=== PATIENT | female | born 1950 | race Caucasian/White ===

== ENCOUNTER 2024-11-10 02:22 | Emergency (ER) | payer OTHER ==
[2024-11-10 02:30] VITALS: BP 127/75; TEMP 97.5; BMI 32.9
[2024-11-10] MEDS ORDERED: ALBUTEROL SO4 2.5/IPRATROPIUM 0.5 INH SOL 3 ML VIAL.NEB. NEB ONE (02:32)
[2024-11-10] MEDS: guaiFENesin 600 MG TABLET.ER (FP) PO ONE (03:48)
[2024-11-10 03:54] VITALS: PULSE 100; RESP 20
[2024-11-10] MEDS ORDERED: predniSONE 20 MG TABLET (UD) ONE (04:02)
[2024-11-10] MEDS: predniSONE 20 MG TABLET (UD) PO ONE (04:06)
== END 2024-11-10 04:30 | disposition home or self-care (01) ==
LOC: JER 02:22
DX: R05.9 Cough, unspecified (principal); R06.02 Shortness of breath; J06.9 Acute upper respiratory infection, unspecified
CPT/HCPCS: 71045-TC-FY; 93005; 93010; 99284-25